=== PATIENT | male | born 1995 | race Caucasian/White ===

== ENCOUNTER 2020-07-08 12:42 | Emergency (ER) | payer MEDICAID ==
--- NOTE | 2020-07-08 13:59 | ED Physician Documentation ---
PD HPI MALE - Stated complaint Stated Complaint: MALE - Chief complaint Chief Complaint: Abd Pain - History obtained from History obtained from: Patient - History of Present Illness Timing - onset: Today Timing - duration: Hours (1) Timing - details: Abrupt onset, Still present Associated symptoms: Hematuria (The patient does have a history of spina bifida with paralysis at elbow 3 and has no sensation in the perineal area and typically self caths. He was doing his routine self cath prior to arrival today at home and was unable to get into the bladder and noted fresh blood out the catheter & the meatus) PD HPI MALE CONTRIB FACTORS: No: Indwelling catheter (intermittent self cath) Similar symptoms before: Has not had sx before Recently seen: Not recently seen Review of Systems Constitutional: denies: Fever, Chills Nose: denies: Rhinorrhea / runny nose, Congestion Throat: denies: Sore throat Respiratory: denies: Cough GI: denies: Nausea, Vomiting : reports: Unable to Void (feeling very full bladder) PD PAST MEDICAL HISTORY - Past Medical History Neuro: Other (Spina bifida with paralysis below L3) - Allergies Allergies/Adverse Reactions: Allergies Allergy/AdvReac Type Severity Reaction Status Date / Time latex AdvReac Unknown Verified 07/08/20 16:26 - Living Situation Living Arrangement: reports: At home (He lives in [place]. He has primary neuro care in spine at [facility]. He states he currently does not have a urologist. He is visiting his parents here for a week or 2 but can go home sooner) - Social History Does the pt smoke?: No Does the pt have substance abuse?: No PD ED PE NORMAL - Vitals Vital signs reviewed: Yes - General General: Alert and oriented X 3, Well developed/nourished, Other (He appears uncomfortable related to bladder fullness.) - Abdomen Abdomen: Normal bowel sounds, Soft, Non tender, No organomegaly, Other (fullness in suprapubic area with distended bladder. ) - Male Male : Other (The external genitalia is normal. There is some red blood noted at the meatus. No ongoing bleeding at this time.) Results - Vitals Vitals: Vital Signs - 24 hr 07/08/20 07/08/20 12:51 16:00 Temperature 37.2 C Heart Rate 115 H 126 H Respiratory 18 18 Rate Blood Pressure 148/94 H 143/101 H O2 Saturation 100 100 Oxygen O2 Source Room air - Labs Labs: Laboratory Tests 07/08/20 15:49 Urine Color YELLOW Urine Clarity HAZY Urine pH 6.5 Ur Specific [place] 1.010 Urine Protein NEGATIVE Urine Glucose (UA) NEGATIVE Urine Ketones NEGATIVE Urine Occult Blood SMALL H Urine Nitrite NEGATIVE Urine Bilirubin NEGATIVE Urine Urobilinogen 0.2 (NORMAL) Ur Leukocyte Esterase NEGATIVE Urine RBC 0-5 Urine WBC 0-3 Ur Squamous Epith Cells NONE SEEN Urine Bacteria None Seen Ur Microscopic Review INDICATED Urine Culture Comments NOT INDICATED PD MEDICAL DECISION MAKING - ED course Complexity details: considered differential (Seems likely they had an accidental urethral tear and has a blind pouch in the wall. Attempts to catheterize by nursing staff produced just some blood and was unable to pass beyond the proximal urethral area.), d/w patient, d/w design studio consultant (I subsequently talked with on-call urology in [place] to arrange follow-up for the patient. I talked with Dr. Hanson who is on-call who said the patient could follow-up with their office or with . She looked up on some notes that he had last been seen urology at about 4 years ago.) ED course: With a very small catheter that does not have a balloon (due to the fact of his latex allergy and we did not have a small latex free catheter with the balloon) I was able to pass to 1 side in the urethra and get past the presumed urethral tear into the bladder with drainage of clear urine. He did feel much relieved with decompressing the bladder. I talked with the urologist on-call in [place] and the patient can follow-up with them. I suggests asked suggestions about keeping the catheter in place without a balloon and urologist said to just tape it and did not suggest any other interventions for it. Departure - Departure Disposition: 01 Home, Self Care Clinical Impression: Intermittent self-catheterization of bladder Urethral tear Qualifiers: Encounter type: initial encounter Qualified Code(s): S37.33XA - Laceration of urethra, initial encounter Condition: Stable Record reviewed to determine appropriate education?: Yes Instructions: ED Catheter Care [place] Follow-Up: Christine Myers PA-C [Physician No Access] - Comments: Keep the catheter in place with to the leg bag. Drainage regularly as needed. Keep it taped in place. Follow-up with urology on Friday, call in the morning for a follow-up appointment. Explained to the front office that you have been seen in the ER and we talked with the urologist sanitation truck cleaner and that they did want t o have you seen over the next few days. I talked with Urologist in [place], who said you can follow up with their office, or with the Urology group (You had seen a PA in their group in [place]. See instructions for number. Or the Urologist in [place] is: [facility] - [address], [address] [place] [address]
[2020-07-08] MEDS ORDERED: LIDOCAINE 2% URO-JET 5 ML SYRINGE UR STA (14:27)
[2020-07-08 16:03] LABS: BILIRUBIN,URINE NEGATIVE (NEGATIVE); GLUCOSE, URINE (UA) NEGATIVE (NEGATIVE); KETONES,URINE (UA) NEGATIVE (NEGATIVE); LEUKOCYTE ESTERASE, URINE NEGATIVE (NEGATIVE); NITRITE,URINE NEGATIVE (NEGATIVE); OCCULT BLOOD,URINE SMALL (NEGATIVE); PH,URINE 6.5 PH (5.0-7.5); PROTEIN,URINE NEGATIVE (NEGATIVE); UROBILINOGEN,URINE 0.2 (NORMAL) E.U./dL (NORMAL)
[2020-07-08 16:06] LABS: CLARITY,URINE HAZY (CLEAR)
[2020-07-08 16:15] LABS: BACTERIA,URINE None Seen /HPF (None Seen); RBC,URINE 0-5 /HPF (0-5); SQUAMOUS EPITHELIAL CELL,UR NONE SEEN (<= Few)
[2020-07-08 17:55] VITALS: BP 131/71
== END 2020-07-08 18:01 | disposition home or self-care (01) ==
LOC: ED 12:42
DX: S37.33XA Laceration of urethra, initial encounter (principal); X58.XXXA Exposure to other specified factors, initial encounter; Q76.0 Spina bifida occulta
CPT/HCPCS: 51702; 81001; 81003; 87086; 99283

== ENCOUNTER 2020-07-09 14:46 | Emergency (ER) | payer MEDICAID ==
--- NOTE | 2020-07-09 16:17 | ED Physician Documentation ---
History of Present Illness - Stated complaint Stated Complaint: MALE - Chief complaint Chief Complaint: General - History obtained from History obtained from: Patient - History of Present Illness Timing: Today Pain level max: 0 Pain level now: 0 - Additonal information Additional information: 25-year-old male presents to the emergency department stating that he had a catheter placed yesterday. He had been performing self catheterizations at home, created a small urethral tear, a red Con catheter was able to be placed. He states that the catheter is coming out today and no urine is draining. No other complaints. Patient has spina bifida. Review of Systems Constitutional: denies: Fever, Chills, Myalgias GI: denies: Vomiting, Diarrhea Skin: denies: Rash Musculoskeletal: denies: Neck pain, Back pain Neurologic: denies: Headache PD PAST MEDICAL HISTORY - Past Medical History Past Medical History: Yes Neuro: Other (Spina bifida with paralysis below L3) - Allergies Allergies/Adverse Reactions: Allergies Allergy/AdvReac Type Severity Reaction Status Date / Time latex AdvReac Unknown Verified 07/09/20 15:00 - Social History Does the pt smoke?: No Does the pt have substance abuse?: No PD ED PE NORMAL - Vitals Vital signs reviewed: Yes - General General: Alert and oriented X 3, No acute distress - Respiratory Respiratory: No respiratory distress - Abdomen Abdomen: Soft, Non tender, Non distended - Male Male : Other (no bleeding) - Derm Derm: Warm and dry - Neuro Neuro: Alert and oriented X 3 - Psych Psych: Normal mood, Normal affect Results - Vitals Vitals: Vital Signs - 24 hr 07/09/20 07/09/20 14:56 19:22 Temperature 37.1 C 37.2 C Heart Rate 122 H 128 H Respiratory 16 18 Rate Blood Pressure 147/100 H 153/105 H O2 Saturation 97 98 Oxygen O2 Source Room air PD MEDICAL DECISION MAKING - ED course Complexity details: reviewed results, re-evaluated patient, considered differential, d/w patient ED course: Unable to pass a catheter here on several attempts. Called Dr. Valentin james, urology states patient should be transferred to [facility] as he was seen there once several years ago. Called Dr. Yeung, urology at [facility] and she recommends placing a 16 or 18 coudet catheter, this too was unsuccessful. Will transfer to [facility] ER, Dr. Madrid accepts in transfer. Patients mother will drive him there. COBRA forms completed. Dr. Yeung will see him in the ER at [facility]. Patient refuses ambulance transport. His mother will drive him. This document was made in part using voice recognition software. While efforts are made to proofread this document, sound alike and grammatical errors may occur. Departure - Departure Disposition: 02 Transfer Acute Care Hosp Clinical Impression: Urethral tear Qualifiers: Encounter type: initial encounter Qualified Code(s): S37.33XA - Laceration of urethra, initial encounter Condition: Stable Comments: You are to go directly to the [facility] emergency department tonight in [place]. I spoke with Dr. Madrid. They will call Dr. Yeung when you arrive and she will come in and place the catheter. Discharge Date/Time: 07/09/20 19:35
[2020-07-09 19:23] VITALS: BP 153/105
== END 2020-07-09 19:35 | disposition short-term general hospital (02) ==
LOC: ED 14:46
DX: S37.33XA Laceration of urethra, initial encounter (principal); X58.XXXA Exposure to other specified factors, initial encounter; Q05.9 Spina bifida, unspecified; G82.22 Paraplegia, incomplete
CPT/HCPCS: 99284; 99285